=== PATIENT | male | born 1990 ===

== ENCOUNTER 2021-03-04 12:12 | Emergency (ER) | payer OTHER ==
[2021-03-04 13:42] VITALS: BP 151/79
--- NOTE | 2021-03-04 14:13 | Event Note ---
ED Screening Note Date of service: 03/04/21 Time: 14:13 ED Screening Note: Patient complains of near syncopal episode today at work States he was diagnosed with Covid 2 weeks ago and his symptoms have improved, however he still has a cough He denies shortness of breath or hemoptysis or history of DVT/PE Heart rate noted to be 118 He denies chest pain This initial assessment/diagnostic orders/clinical plan/treatment(s) is/are subject to change based on patients health status, clinical progression and re- assessment by fellow clinical providers in the ED. Further treatment and workup at subsequent clinical providers discretion. Patient/guardian urged not to elope from the ED as their condition may be serious if not clinically assessed and managed. Initial orders include: Labs EKG
[2021-03-04 15:53] LABS: Alanine Aminotransferase 35 units/L (7-56); Albumin 3.8 g/dL (3.9-5); BUN/Creatinine Ratio 16; Blood Urea Nitrogen 18 mg/dL (9-20); Calcium 9.6 mg/dL (8.4-10.2); Hemolysis Index 7
[2021-03-04 16:01] LABS: Basophils # (Auto) 0.1 K/mm3 (0.0-0.1); Basophils % (Auto) 0.8 % (0.0-1.8); Eosinophils # (Auto) 0.2 K/mm3 (0.0-0.4); Eosinophils % (Auto) 2.7 % (0.0-4.3); Hematocrit 38.7 % (35.5-45.6); Hemoglobin 12.4 gm/dl (11.8-15.2); Lymphocytes # (Auto) 1.5 K/mm3 (1.2-5.4); Lymphocytes % (Auto) 21.3 % (13.4-35.0); Mean Corpuscular HGB Conc 32 % (32-34); Mean Corpuscular Volume 84 fl (84-94); Monocytes # (Auto) 0.8 K/mm3 (0.0-0.8); Monocytes % (Auto) 10.7 % (0.0-7.3); Platelet Count 730 K/mm3 (140-440); Red Blood Count 4.63 M/mm3 (3.65-5.03); Red Cell Distribution Width 14.1 % (13.2-15.2)
--- NOTE | 2021-03-05 10:17 | Electrocardiograph Report ---
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
== END 2021-03-04 22:50 | disposition left against medical advice (07) ==
LOC: ED 12:12
DX: Z00.8 Encounter for other general examination (principal); Z53.21 Procedure and treatment not carried out due to patient leaving prior to being seen by health care provider
CPT/HCPCS: 36415; 80053; 84484; 85025; 85379; 93005